=== PATIENT | male | born 1995 | race Caucasian/White ===

== ENCOUNTER 2019-01-10 15:10 | Emergency (ER) | payer OTHER ==
[~2019-01-10] VITALS: Ht 182.9 cm; Wt 102.3 kg
[~2019-01-10 15:10] MED LIST: CONCERTA18 MG PO; CONCERTA54 MG PO; KEPPRA250 MG PO
[2019-01-10 15:14] VITALS: BP 134/82
[2019-01-10 17:54] VITALS: PULSE 85; TEMP 98.2
== END 2019-01-10 17:55 | disposition home or self-care (01) ==
LOC: COL.ER 15:10
DX: R51 Headache (principal)
CPT/HCPCS: J1200; J1885; J2765; J7030; Q9967